=== PATIENT | female | born 1965 | race Caucasian/White ===

== ENCOUNTER 2018-05-16 16:35 | Inpatient (IN) | payer MEDICARE, MEDICAID ==
[~2018-05-16] VITALS: Ht 167.6 cm; Wt 116.1 kg
[2018-05-16] MEDS ORDERED: IPRATROPIUM BROMIDE (0.02%) 0.5MG/2.5ML NEB HHN STA (17:15)
[2018-05-16] MEDS ORDERED: SODIUM CHLORIDE 0.9% 1,000 ML IV ONE (17:15)
[2018-05-16] MEDS ORDERED: MAGNESIUM 2 G PREMIX 50 ML IV STA (17:15)
[2018-05-16] MEDS ORDERED: METHYLPREDNISOLONE SOD SUCC 125 MG/2 ML VIAL IV STA (17:15)
[2018-05-16] MEDS ORDERED: ALBUTEROL (0.083%) 2.5MG/3ML NEB HHN STA (17:15)
[2018-05-16] MEDS ORDERED: IPRATROPIUM/ALBUTEROL 0.5-3(2.5)MG/3ML NEB ONE (17:43)
[2018-05-16 18:01] LABS: BASOPHILS % 0.6 % (0.0-2.0); EOSINOPHILS % 0.2 % (0.0-5.0); HEMATOCRIT. 40.6 % (36.0-48.0); HEMOGLOBIN. 13.6 g/dL (12.0-16.0); LYMPHOCYTES % 14.4 % (20.0-50.0); MEAN CORPUSCULAR HEMOGLOBIN 29.6 pg (28.0-32.0); MEAN CORPUSCULAR VOLUME 88.6 fL (81.0-99.0); MEAN PLATELET VOLUME 8.3 fl (7.4-10.4); MONOCYTES % 7.5 % (2.0-8.0); NEUTROPHILS % 77.3 % (40.0-76.0); PLATELET 469 x1000/uL (130-400); RED BLOOD CELL COUNT 4.59 mill/uL (4.2-5.4); RED CELL DISTRIBUTION WIDTH 12.8 % (11.6-14.6)
[2018-05-16 18:05] LABS: CHLORIDE 105 mEq/L (98-107)
[2018-05-16] MEDS ORDERED: CEFTRIAXONE 2 G PREMIX 50 ML IV ONE (18:30)
[2018-05-16] MEDS ORDERED: SODIUM CHLORIDE 0.9% 1000ML BAG (SEPSIS BOLUS) IV ONE (18:30)
[2018-05-16] MEDS ORDERED: AZITHROMYCIN 500 MG in DEXT 5% WATER 250 ML IV ONE (18:30)
[2018-05-16 19:03] LABS: CLARITY URINE CLOUDY (CLEAR); COLOR URINE YELLOW (YELLOW); KETONES URINE TRACE (NEGATIVE); LEUKOCYTE ESTERASE URINE NEGATIVE (NEGATIVE); NITRITE URINE NEGATIVE (NEGATIVE); OCCULT BLOOD URINE 2+ (NEGATIVE); PROTEIN URINE TRACE (NEGATIVE); SPECIFIC GRAVITY URINE 1.046 (1.005-1.030); UROBILINOGEN URINE 0.2 E.U./dL (0.2-1.0)
[2018-05-16 21:19] LABS: BG BASE EXCESS -5.8 mmol/L (-2.0-2.0); BG CARBOXYHEMOGLOBIN 0.4 % (0.5-1.5); BG FRACTION INSPIRED OXYGEN 21; BG METHEMOGLOBIN 0.3 % (0.0-1.5); BG OXYHEMOGLOBIN 94.3 % (94.0-97.0); BG PCO2 30.6 mmHg (35.0-45.0); BG PH 7.388 (7.350-7.450); BG PO2 74.2 mmHg (75.0-100.0); BG SAMPLE SITE RIGHT RADIAL; BG TOTAL HEMOGLOBIN 12.8 g/dL (12.0-18.0); BG VENT MODE ROOM AIR
[2018-05-16 22:30] VITALS: BP 134/75
[2018-05-16 22:50] VITALS: BP 134/75
[2018-05-16] MEDS ORDERED: ALBU18HF2 IH (23:14)
[2018-05-16] MEDS ORDERED: ATOR20TA65 PO (23:14)
[2018-05-16] MEDS ORDERED: BENA10TA10 PO (23:14)
[2018-05-16] MEDS ORDERED: ASPI-1159 PO (23:14)
[2018-05-16] MEDS ORDERED: METF-816 MT (23:14)
[2018-05-16] MEDS ORDERED: FLOV44 INH (23:14)
[2018-05-16] MEDS ORDERED: DOCUSATE SODIUM 100MG CAPSULE PO PRN (23:45)
[2018-05-16] MEDS ORDERED: ONDANSETRON HCL 4MG/2ML INJ IV PRN (23:45)
[2018-05-16] MEDS ORDERED: HYDROCODONE/ACETAMINOPHEN 5/325MG TABLET PO PRN (23:45)
[2018-05-16] MEDS ORDERED: ACETAMINOPHEN 325MG TABLET PO PRN (23:45)
[2018-05-17] VITALS: BP 107/64
[2018-05-17] MEDS ORDERED: DEXTROSE 50% WATER 50ML SYRINGE IV PRN ×2 (00:15→14:30)
[2018-05-17] MEDS: IPRATROPIUM/ALBUTEROL 0.5-3(2.5)MG/3ML NEB INH SCH ×6 (00:48→20:47)
[2018-05-17 04:00] VITALS: BP 143/84
[2018-05-17] MEDS: BLOOD SUGAR DIAGNOSTIC STRIP TEST SCH ×4 (06:10→21:12)
[2018-05-17] MEDS: METHYLPREDNISOLONE SOD SUCC 40 MG/ML VIAL IV SCH ×3 (06:10→21:24)
[2018-05-17] MEDS: INSULIN LISPRO 100 UNITS/ML SUBCUT SCH ×4 (06:28→21:23)
[2018-05-17] MEDS ORDERED: PANTOPRAZOLE 40MG DR TABLET PO SCH (06:45)
[2018-05-17 07:06] LABS: BASOPHILS % 0.2 % (0.0-2.0); HEMATOCRIT. 36.6 % (36.0-48.0); HEMOGLOBIN. 12.3 g/dL (12.0-16.0); LYMPHOCYTES % 9.1 % (20.0-50.0); MEAN CORPUSCULAR HEMOGLOBIN 29.7 pg (28.0-32.0); MEAN CORPUSCULAR VOLUME 88.7 fL (81.0-99.0); MEAN PLATELET VOLUME 8.4 fl (7.4-10.4); MONOCYTES % 2.4 % (2.0-8.0); NEUTROPHILS % 88.3 % (40.0-76.0); PLATELET 433 x1000/uL (130-400); RED BLOOD CELL COUNT 4.13 mill/uL (4.2-5.4); RED CELL DISTRIBUTION WIDTH 13.2 % (11.6-14.6)
[2018-05-17 07:31] LABS: CHLORIDE 108 mEq/L (98-107)
[2018-05-17 07:43] LABS: HDL CHOLESTEROL 33 mg/dL (40-59); LDL CHOLESTEROL 128 mg/dL (5-100); T4 FREE 1.28 ng/dL (0.76-1.46)
[2018-05-17 08:00] VITALS: BP 116/68
[2018-05-17] MEDS: ASPIRIN 81MG EC TABLET PO SCH (08:38)
[2018-05-17] MEDS: AZITHROMYCIN 500 MG TABLET PO SCH (08:38)
[2018-05-17] MEDS ORDERED: ENOXAPARIN 40MG/0.4ML SYR SUBCUT SCH (09:00)
[2018-05-17 12:00] VITALS: BP 115/63
[2018-05-17] MEDS: LORATADINE 10MG TABLET PO SCH (15:10)
[2018-05-17] MEDS: SODIUM CHLORIDE 0.45% 1,000 ML IV SCH (15:10)
[2018-05-17 16:00] VITALS: BP 114/66
[2018-05-17] MEDS: METFORMIN HCL 500MG TABLET PO SCH (16:45)
[2018-05-17] MEDS: MONTELUKAST SODIUM 10MG TABLET PO SCH (16:45)
[2018-05-17] MEDS: PROMETHAZINE/DEXTROMETHORPHAN 6.25-15MG/5ML BOTTLE 120ML PO PRN (18:35)
[2018-05-17 20:00] VITALS: BP 117/72
[2018-05-17] MEDS: ENOXAPARIN 30MG/0.3ML SYR SUBCUT SCH (21:22)
[2018-05-17] MEDS: FAMOTIDINE 20MG/2ML VIAL IV SCH (21:24)
[2018-05-17] MEDS: CEFTRIAXONE 1 G PREMIX 50 ML IV SCH (21:24)
[2018-05-17] MEDS: ATORVASTATIN CALCIUM 20MG TABLET PO SCH (21:24)
[2018-05-18] VITALS (7 sets, daily range): BP systolic 98–148; BP diastolic 45–85
[2018-05-18] MEDS: PROMETHAZINE/DEXTROMETHORPHAN 6.25-15MG/5ML BOTTLE 120ML PO PRN ×3 (01:10→18:19)
[2018-05-18 05:16] LABS: *AMPHETAMINES SCREEN URINE NEGATIVE (NEGATIVE); *BARBITURATES SCREEN URINE NEGATIVE (NEGATIVE); *BENZODIAZEPINES SCREEN URINE NEGATIVE (NEGATIVE); *COCAINE SCREEN URINE NEGATIVE (NEGATIVE); METHADONE URINE SCREEN NEGATIVE (NEGATIVE)
[2018-05-18 05:17] LABS: CANNABINOID URINE SCREEN NEGATIVE (NEGATIVE); OPIATES URINE SCREEN NEGATIVE (NEGATIVE); PHENCYCLIDINE URINE SCREEN NEGATIVE (NEGATIVE)
[2018-05-18] MEDS: BLOOD SUGAR DIAGNOSTIC STRIP TEST SCH ×4 (06:03→20:42)
[2018-05-18] MEDS: METHYLPREDNISOLONE SOD SUCC 40 MG/ML VIAL IV SCH (06:06)
[2018-05-18] MEDS: INSULIN LISPRO 100 UNITS/ML SUBCUT SCH ×4 (06:16→20:43)
[2018-05-18 06:21] LABS: PROTHROMBIN TIME 10.1 sec (9.1-11.1)
[2018-05-18 06:30] LABS: CHLORIDE 105 mEq/L (98-107)
[2018-05-18 06:46] LABS: HEMATOCRIT 38.2 % (36.0-48.0); HEMOGLOBIN 12.5 g/dL (12.0-16.0); MEAN CORPUSCULAR HEMOGLOBIN 29.2 pg (28.0-32.0); MEAN CORPUSCULAR VOLUME 89.4 fL (81.0-99.0); PLATELET 439 x1000/uL (130-400); RED BLOOD CELL COUNT 4.27 mill/uL (4.2-5.4); RED CELL DISTRIBUTION WIDTH 13.1 % (11.6-14.6)
[2018-05-18] MEDS: IPRATROPIUM/ALBUTEROL 0.5-3(2.5)MG/3ML NEB INH SCH ×4 (07:42→21:29)
[2018-05-18] MEDS ORDERED: AZITHROMYCIN 500 MG TABLET PO SCH (09:00)
[2018-05-18] MEDS ORDERED: BENAZEPRIL 10MG TABLET PO SCH (09:00)
[2018-05-18] MEDS: ASPIRIN 81MG EC TABLET PO SCH (09:01)
[2018-05-18] MEDS: AZITHROMYCIN 500 MG TABLET PO SCH (09:01)
[2018-05-18] MEDS: ENOXAPARIN 30MG/0.3ML SYR SUBCUT SCH ×2 (09:02→20:42)
[2018-05-18] MEDS: METFORMIN HCL 500MG TABLET PO SCH ×2 (09:02→17:47)
[2018-05-18] MEDS: FAMOTIDINE 20MG/2ML VIAL IV SCH ×2 (09:02→20:42)
[2018-05-18] MEDS: LORATADINE 10MG TABLET PO SCH (09:02)
[2018-05-18] MEDS: SODIUM CHLORIDE 0.45% 1,000 ML IV SCH (15:24)
[2018-05-18] MEDS ORDERED: INSULIN GLARGINE UD 100 UNITS/ML SYR SUBCUT SCH (16:00)
[2018-05-18] MEDS: MONTELUKAST SODIUM 10MG TABLET PO SCH (17:47)
[2018-05-18] MEDS ORDERED: METHYLPREDNISOLONE SOD SUCC 40 MG/ML VIAL IV SCH (18:00)
[2018-05-18] MEDS ORDERED: INSULIN LISPRO 100 UNITS/ML SUBCUT NR (18:30)
[2018-05-18] MEDS ORDERED: INSULIN LISPRO 100 UNITS/ML SUBCUT ONE (18:45)
[2018-05-18] MEDS: CEFTRIAXONE 1 G PREMIX 50 ML IV SCH (20:41)
[2018-05-18] MEDS: ATORVASTATIN CALCIUM 20MG TABLET PO SCH (20:42)
== END 2018-05-18 22:08 | disposition home or self-care (01) | DRG 202 ==
LOC: ER 16:35 → 5WST 18:42 → EDBEDREQ 18:44 → EDBEDREQTM 18:44 → EDBEDREQ 20:13 → ENRESERV 21:24 → 5WST 23:28
PROVIDERS: ADMIT Internal Medicine; ATTEND Internal Medicine
DX: J45.901 Unspecified asthma with (acute) exacerbation (principal); R65.11 Systemic inflammatory response syndrome (SIRS) of non-infectious origin with acute organ dysfunction; E87.2 Acidosis; E66.2 Morbid (severe) obesity with alveolar hypoventilation; Z68.41 Body mass index [BMI] 40.0-44.9, adult; J45.902 Unspecified asthma with status asthmaticus; E11.65 Type 2 diabetes mellitus with hyperglycemia; E78.5 Hyperlipidemia, unspecified; R06.03 Acute respiratory distress; R31.9 Hematuria, unspecified; J06.9 Acute upper respiratory infection, unspecified; E86.0 Dehydration; I10 Essential (primary) hypertension; Z98.891 History of uterine scar from previous surgery; Z87.891 Personal history of nicotine dependence; Z86.73 Personal history of transient ischemic attack (TIA), and cerebral infarction without residual deficits
CPT/HCPCS: 36415; 36600; 71045; 80048; 80061; 80305; 82375; 82805; 82962; 83036; 83605; 83880; 84439; 84443; 84484; 85027; 87804; 93005; 93306; 93970; 94640; 96365; 96366; 96375; 99291; J0456; J0696; J1650; J1815; J2920; J2930; J3475; J3490; J7030; J7060; J7611; J7620

== ENCOUNTER 2022-02-04 02:30 | Emergency (ER) | payer MEDICARE, MEDICAID ==
[~2022-02-04] VITALS: Ht 172.7 cm; Wt 90.0 kg
[~2022-02-04 02:30] MED LIST: ALBU18HF2 IH; ALBU90AE INH; ASPI-1497 MT; ASPI-1497 PO; BENA10TA74 PO; LIP40 MT; METF-874 MT
[2022-02-04 02:34] VITALS: BP 177/101
[2022-02-04] MEDS ORDERED: ASPIRIN 81MG TABLET PO ONE (04:45)
[2022-02-04 05:20] LABS: BASOPHILS % 0.7 % (0.0-2.0); EOSINOPHILS % 3.1 % (0.0-5.0); HEMATOCRIT. 37.5 % (36.0-48.0); HEMOGLOBIN. 12.9 g/dL (12.0-16.0); MEAN CORPUSCULAR HEMOGLOBIN 30.6 pg (28.0-32.0); MEAN CORPUSCULAR VOLUME 88.9 fL (81.0-99.0); MEAN PLATELET VOLUME 7.7 fl (7.4-10.4); MONOCYTES % 8.2 % (2.0-8.0); PLATELET 388 x1000/uL (130-400); RED BLOOD CELL COUNT 4.22 mill/uL (4.2-5.4); RED CELL DISTRIBUTION WIDTH 12.9 % (11.6-14.6)
[2022-02-04 05:28] LABS: CHLORIDE 106 mEq/L (98-107)
[2022-02-04] MEDS ORDERED: IPRATROPIUM/ALBUTEROL 0.5-3(2.5)MG/3ML NEB HHN ONE (06:00)
[2022-02-04] MEDS ORDERED: TOPUD PO (08:51)
== END 2022-02-04 09:05 | disposition home or self-care (01) ==
LOC: ER 02:30
DX: R07.89 Other chest pain (principal); R06.00 Dyspnea, unspecified; J44.9 Chronic obstructive pulmonary disease, unspecified; J45.909 Unspecified asthma, uncomplicated; E11.9 Type 2 diabetes mellitus without complications; I10 Essential (primary) hypertension; Z79.82 Long term (current) use of aspirin; Z98.890 Other specified postprocedural states
CPT/HCPCS: 36415; 71045; 80053; 83880; 84484; 85025; 93005; 94640; 99285

== ENCOUNTER 2022-08-18 06:51 | Emergency (ER) | payer MEDICARE, MEDICAID ==
[~2022-08-18] VITALS: Ht 167.6 cm; Wt 120.0 kg
[~2022-08-18 06:51] MED LIST changes: +TOPUD PO
[2022-08-18 07:57] LABS: CHLORIDE 108 mEq/L (98-107)
[2022-08-18 08:04] LABS: BASOPHILS % 0.6 % (0.0-2.0); EOSINOPHILS % 4.6 % (0.0-5.0); HEMATOCRIT. 38.7 % (36.0-48.0); HEMOGLOBIN. 13.2 g/dL (12.0-16.0); LYMPHOCYTES % 30.7 % (20.0-50.0); MEAN CORPUSCULAR HEMOGLOBIN 30.3 pg (28.0-32.0); MEAN CORPUSCULAR VOLUME 88.8 fL (81.0-99.0); MEAN PLATELET VOLUME 7.8 fl (7.4-10.4); MONOCYTES % 8.1 % (2.0-8.0); PLATELET 389 x1000/uL (130-400); RED BLOOD CELL COUNT 4.36 mill/uL (4.2-5.4); RED CELL DISTRIBUTION WIDTH 12.8 % (11.6-14.6)
[2022-08-18] MEDS ORDERED: IPRATROPIUM BROMIDE (0.02%) 0.5MG/2.5ML NEB HHN STA ×2 (09:46→11:49)
[2022-08-18] MEDS ORDERED: ALBUTEROL (0.083%) 2.5MG/3ML NEB HHN STA ×3 (09:46→11:49)
[2022-08-18] MEDS ORDERED: METHYLPREDNISOLONE SOD SUCC 125 MG/2 ML VIAL IM STA (09:46)
[2022-08-18] MEDS ORDERED: METHYLPREDNISOLONE SOD SUCC 125 MG/2 ML VIAL IV STA (11:49)
[2022-08-18] MEDS ORDERED: P20 MT (13:02)
[2022-08-18 14:45] VITALS: BP 149/56
== END 2022-08-18 15:03 | disposition home or self-care (01) ==
LOC: ER 07:19
DX: J45.901 Unspecified asthma with (acute) exacerbation (principal); J06.9 Acute upper respiratory infection, unspecified; E11.9 Type 2 diabetes mellitus without complications; I10 Essential (primary) hypertension; Z20.822 Contact with and (suspected) exposure to COVID-19
CPT/HCPCS: 36415; 71045; 80053; 83880; 84484; 85025; 87426; 87804; 93005; 94640; 94644; 96372; 96374; 99285; C9803; J2930